=== PATIENT | female | born 2000 | race Caucasian/White ===

== ENCOUNTER 2022-04-30 06:57 | Day surgery (SDC) | payer MEDICAID ==
--- NOTE | 2022-04-30 07:14 | ANESTHESIA ---
Pre-Anesthesia VS, & Labs - Diagnosis pilonidal cyst - Procedure pilonidal cystectomy - NPO >8 hours - Is Patient ?: No - Lab Results Lab results reviewed: Yes Home Medications and Allergies Home Medications: Ambulatory Orders No Known Home Medications 04/17/22 No Known Home Medications 04/17/22 Allergies/Adverse Reactions: Allergies Allergy/AdvReac Type Severity Reaction Status Date / Time No Known Drug Allergies Allergy Verified 04/17/22 12:39 Anes History & Medical History - Anesthetic History Anesthesia Complications: reports: No previous complications Family history of Anesthesia Complications: Denies Family history of Malignant Hyperthermia: Denies - Medical History Cardiovascular: reports: None Pulmonary: reports: None Gastrointestinal: reports: None Urinary: reports: None Musculoskeletal: reports: None Endocrine/Autoimmune: reports: None Skin: reports: None Psychosocial: reports: Alcohol (social) History of Cancer?: No - Surgical History Eyes Ears Nose Throat (EENT): reports: Tonsil/Adenoidectomy Exam General: Alert, Oriented x3, Cooperative Mouth Openin Fingerbreadth Neck Mobility: Normal Mallampati classification: II Thyromental Distance: 4-6 cm Respiratory: Lungs clear, Normal breath sounds, No respiratory distress Cardiovascular: Regular rate Neurological: Normal speech Mental/Cognitive Status: Alert/Oriented X3, Normal for patient Cognitive Status: Within normal limits Plan Anesthesia Type: General Consent for Procedure(s) Verified and Reviewed: Yes Code Status: Attempt Resuscitation ASA classification: 1-Healthy patient Is this case an emergency?: No
[2022-04-30] MEDS ORDERED: LACTATED RINGERS 1,000 ML IV ONE ×2 (07:24→09:22)
[2022-04-30 07:25] LABS: HCG UR QUAL NEGATIVE
[2022-04-30] MEDS ORDERED: METOCLOPRAMIDE 10 MG/2 ML VIAL IVP PRN (07:38)
[2022-04-30] MEDS ORDERED: fentaNYL 100 MCG/2 ML VIAL IVP PRN (07:38)
[2022-04-30] MEDS ORDERED: MORPHINE 2 MG/ML CARPUJECT IVP PRN (07:38)
[2022-04-30] MEDS ORDERED: ATROPINE ABBOJECT 1 MG/10 ML SYRINGE IVP PRN (07:38)
[2022-04-30] MEDS ORDERED: ONDANSETRON 4 MG/2 ML VIAL IVP PRN (07:38)
[2022-04-30] MEDS ORDERED: NALOXONE 0.4 MG/ML VIAL IVP PRN (07:38)
[2022-04-30] MEDS ORDERED: ePHEDrine 50 MG/ML VIAL IVP PRN (07:38)
[2022-04-30] MEDS ORDERED: HYDROmorphone 0.5 MG/0.5 ML SYRINGE IVP PRN (07:38)
[2022-04-30] MEDS ORDERED: BUPIVACAINE 0.5% PF 30 ML VIAL ONE (07:54)
[2022-04-30] MEDS ORDERED: LIDOCAINE 2%-EPI 1:100000 20 ML MDV ONE (07:54)
[2022-04-30] MEDS ORDERED: LACTATED RINGERS 1,000 ML IV SCH (08:00)
[2022-04-30] MEDS ORDERED: LIDOCAINE-MPF 2% 5 ML VIAL ONE (08:03)
[2022-04-30] MEDS ORDERED: fentaNYL 100 MCG/2 ML VIAL ONE (08:03)
[2022-04-30] MEDS ORDERED: ONDANSETRON 4 MG/2 ML VIAL ONE (08:03)
[2022-04-30] MEDS ORDERED: PROPOFOL 200 MG/20 ML VIAL IVP ONE (08:03)
[2022-04-30] MEDS ORDERED: SUGAMMADEX 200 MG/2 ML VIAL IVP ONE (08:03)
[2022-04-30] MEDS ORDERED: MIDAZOLAM 2 MG/2 ML VIAL ONE (08:03)
[2022-04-30] MEDS ORDERED: ROCURONIUM 50 MG/5 ML VIAL ONE (08:03)
[2022-04-30] MEDS ORDERED: BUPIVACAINE 0.5% PF 30 ML VIAL SUBQ ONE ×2 (08:48)
[2022-04-30] MEDS ORDERED: LIDOCAINE 2%-EPI 1:100000 20 ML MDV SUBQ ONE ×2 (08:49)
--- NOTE | 2022-04-30 09:08 | OPERATIVE REPORT ---
Operative Report - General Procedure Date: 04/30/22 Planned Procedure: After obtaining informed consent, the patient is brought to the operating room and placed in the supine position on the operating table. Following successful induction of general endotracheal anesthesia the patient is rolled to the prone position with appropriate padding of all bony prominences. All appropriate monitors were placed. A timeout was held per scope protocol all elements of the surgical safety checklist were followed before, during, and after procedure. The posterior inferior portion of the back and the region over the coccyx were prepped and draped in the standard surgical fashion. We began the procedure by drawing a planned incision line around the cystic lesion. This area was then infiltrated with a mixture of local anesthetics to create a field block. There was no obvious inflammation and a single punctum was appreciated. A 3 cm elliptical incision was created sharply and carried to the through the skin and subcutaneous tissue. The involved tissue was limited to the skin and dermis with only a small associated cyst cavity. All of this tissue was gently removed.The wound was then irrigated with warm saline solution.Checked for hemostasis and the edges of that hairbearing tissue were fulgurated.When we were satisfied that it was clean and dry and no debris was remaining, it was closed in 2 layers with 2-0 Vicryl sutures and nylon stitches were placed in the skin. All sponge, needle, and instrument counts were correct at the conclusion of the case. The patient was allowed to wake from anesthesia without difficulty and taken to the postanesthesia care unit in good condition.
[2022-04-30 10:19] VITALS: BP 108/55
--- NOTE | 2022-04-30 16:21 | ANESTHESIA POST OP EVALUATION ---
Anesthesia Post Eval - Post Anesthesia Eval Vitals: Last Vital Signs Temp 36.3 C L 04/30/22 10:19 Pulse 82 04/30/22 10:19 Resp 16 04/30/22 10:19 BP 108/55 L 04/30/22 10:19 Pulse Ox 100 04/30/22 10:19 CV Function Including HR & BP: Stable Pain Control: Satisfactory Nausea & Vomiting: Negative Mental Status: Baseline Respiratory Status: Airway Patent Hydration Status: Satisfactory Anesthesia Complications: None
== END 2022-04-30 06:58 | disposition home or self-care (01) ==
LOC: SDS 06:57
PROVIDERS: ATTEND Surgery
DX: L05.91 Pilonidal cyst without abscess (principal)
CPT/HCPCS: 11770; 81025; J7120

== ENCOUNTER 2022-10-09 14:15 | Outpatient (CLI) | payer MEDICAID ==
[2022-10-09 14:43] LABS: BASOPHILS % (AUTO) 0.3 %; EOSINOPHILS # (AUTO) 0.2 10^3/uL (0.0-0.7); EOSINOPHILS % (AUTO) 2.7 %; HCT - HEMATOCRIT 42.6 % (37.0-47.0); HGB - HEMOGLOBIN 14.4 g/dL (12.0-16.0); LYMPHOCYTES # (AUTO) 2.1 10^3/uL (1.5-3.5); LYMPHOCYTES % (AUTO) 24.4 %; MEAN CORPUSCULAR HGB CONC 33.8 g/dL (32.0-36.0); MEAN CORPUSCULAR VOLUME 82.9 fL (81.0-99.0); MEAN PLATELET VOLUME 9.5 fL (7.9-10.8); MONOCYTES # (AUTO) 0.6 10^3/uL (0.0-1.0); MONOCYTES % (AUTO) 6.6 %; NEUTROPHILS # (AUTO) 5.7 10^3/uL (1.5-6.6); NEUTROPHILS % (AUTO) 65.9 %; PLT - PLATELET COUNT 297 10^3/uL (130-450); RED BLOOD COUNT 5.14 10^6/uL (4.20-5.40); WHITE BLOOD COUNT 8.7 x10^3/uL (4.8-10.8)
[2022-10-09 15:19] LABS: ALBUMIN 4.3 g/dL (3.2-5.5); ALBUMIN/GLOBULIN RATIO 1.2 (1.0-2.2); BILIRUBIN,TOTAL 0.8 mg/dL (0.2-1.0); CALCIUM 9.2 mg/dL (8.5-10.3); CREATININE 0.6 mg/dL (0.4-1.0); POTASSIUM 3.9 mmol/L (3.5-5.0); TOTAL PROTEIN 7.8 g/dL (6.7-8.2)
[2022-10-09 15:34] LABS: THYROID STIMULATING HORMONE 1.01 uIU/mL (0.34-5.60)
[2022-10-09 15:36] LABS: FREE T4 (FREE THYROXINE) 0.95 ng/dL (0.58-1.64)
[2022-10-09 15:47] LABS: GTT GLUCOSE,FASTING 87 mg/dL (70-100)
[2022-10-09 20:04] LABS: ESTIMATED AVERAGE GLUCOSE 97 mg/dL (70-100)
== END 2022-10-09 14:16 | disposition home or self-care (01) ==
LOC: LAB 14:15
PROVIDERS: ATTEND Nurse Practitioner Obstetrics & Gynecology
DX: L68.0 Hirsutism (principal); E66.9 Obesity, unspecified
CPT/HCPCS: 36415; 80053; 82951; 83036; 84403; 84439; 84443; 85025